=== PATIENT | female | born 1960 | race African-American/Black ===

== ENCOUNTER 2017-09-09 10:32 | Emergency (ER) | payer BC, OTHER ==
[~2017-09-09] VITALS: Ht 167.6 cm; Wt 95.3 kg
[~2017-09-09 10:32] MED LIST: CIPROFLOXACIN500 M1 PO; CLEOCIN HCL300 MG PO; KEPPRA 500 MG500 M1 PO; NO HOME MEDICATIONS; NOHOMEMEDICATIONS; NORCO 5-325 TA1 EACH PO; TOBRAMYCIN SULFA5 ML OP
[2017-09-09 11:17] LABS: BASOPHILS 0.5 % (0.0-2.0); EOSINOPHILS 1.1 % (0.0-3.0); HEMATOCRIT 40.8 % (37.0-47.0); HEMOGLOBIN 13.4 gm/dL (12.0-15.0); MCH 29.5 pg (26.0-34.0); MCHC 32.9 g/dL (28.0-37.0); MCV 89.4 fL (80.0-100.0); MONOCYTES 6.5 % (1.0-8.0); PLATELET COUNT 228 thou/uL (150-400); POLYS 62.9 % (36.0-66.0); RBC 4.56 mil/uL (4.20-5.00); WBC 6.4 thou/uL (4.0-11.0)
[2017-09-09 11:23] LABS: CREATININE 0.9 mg/dL (0.6-1.0); POTASSIUM 3.6 mmol/L (3.5-5.1)
[2017-09-09 11:28] LABS: ALBUMIN 3.6 g/dL (3.4-5.0); TOTAL BILIRUBIN 0.4 mg/dL (<0.1-1.0); TOTAL PROTEIN 7.2 g/dL (6.4-8.2)
[2017-09-09 11:43] VITALS: BP 120/68
== END 2017-09-09 12:11 | disposition home or self-care (01) ==
LOC: ER 10:32
PROVIDERS: Physician Assistant
DX: G40.909 Epilepsy, unspecified, not intractable, without status epilepticus (principal); Z88.0 Allergy status to penicillin; Z91.041 Radiographic dye allergy status